=== PATIENT | male | born 1970 | race Native Hawaiian/Other Pacific Islander ===

== ENCOUNTER 2023-07-29 15:03 | Outpatient (CLI) | payer SELFPAY | END 2023-07-29 15:04 | disposition critical access hospital (66) | LOC: EMS 15:03 | DX: R55 Syncope and collapse (principal); R41.82 Altered mental status, unspecified; R29.810 Facial weakness | CPT/HCPCS: A0425; A0429 ==

== ENCOUNTER 2023-07-29 15:25 | Emergency (ER) | payer SELFPAY ==
--- NOTE | 2023-07-29 15:31 | ED Physician Documentation ---
History of Present Illness - Stated complaint Stated Complaint: CODE STROKE - Additonal information Additional information: 52-year-old gentleman was brought to the emergency department under a code stroke evaluation. Reportedly he was sitting his vehicle at 2:45 PM when he Told his he was not feeling well and to call 911. He then slumped forward. [place] reported that he was not feeling well and was dizzy and went to the car to sit down. EMS was summoned to the scene and they found that he was altered though protecting his airway. They found that he was not moving his left side and required extensive noxious stimulation in order to open his eyes. Hypertensive on scene with systolic blood pressure of 177. Blood glucose 112 On presentation the emergency department the patient is somnolent and does require noxious stimuli to wake up. However when he does he is able to answer that the day is Sunday and the month of June. He is not sure where he is at. He does not appear to have facial droop or slurred speech. He does have bloodshot eyes. He is hypertensive on presentation, showing NSR on monitor Patient's reports he has a history of hypertension and gout. Also reports he is a heavy drinker (6-12 beers daily) but has not drank today. Review of Systems Unable to obtain: Unresponsive, Other (per EMS) PD PAST MEDICAL HISTORY - Present Medications Home Medications: Ambulatory Orders Medication Instructions Recorded Confirmed Meloxicam 15 mg PO BID 07/29/23 07/29/23 - Allergies Allergies/Adverse Reactions: Allergies Allergy/AdvReac Type Severity Reaction Status Date / Time No Known Drug Allergies Allergy Verified 07/29/23 15:51 PD ED PE EXPANDED - General General: Lethargic - HEENT HEENT: PERRL - Cardiac Cardiac: Regular Rate (NSR on monitor), Radial strong equal, Pedal strong equal, Cap refill < 2 sec - Respiratory Respiratory: Clear to ausultation mitesh. No: Distress, Labored - Abdomen Abdomen: Normal Bowel sounds. No: Tender to palpation - Neuro Neuro: Lethargic. No: Normal speech - GCS Eye Opening: To Pain Motor: Localizes to Pain Verbal: Inappropriate Total: 10 Results - Vitals Vitals: Vital Signs - 24 hr 07/29/23 07/29/23 07/29/23 15:30 15:56 16:13 Temperature 36.5 C Heart Rate 89 79 70 Respiratory 18 20 18 Rate Blood Pressure 177/120 H 156/129 H 171/95 H O2 Saturation 98 100 98 07/29/23 07/29/23 07/29/23 16:35 17:08 18:12 Temperature Heart Rate 84 66 68 Respiratory 18 16 18 Rate Blood Pressure 166/88 H 157/88 H 150/91 H O2 Saturation 98 96 94 07/29/23 07/29/23 07/29/23 18:30 19:06 19:30 Temperature Heart Rate 72 81 67 Respiratory 18 18 19 Rate Blood Pressure 150/91 H 155/82 H 151/70 H O2 Saturation 99 97 97 07/29/23 07/29/23 07/29/23 20:00 20:30 21:00 Temperature Heart Rate 67 71 67 Respiratory 18 18 19 Rate Blood Pressure 159/79 H 150/86 H 144/79 H O2 Saturation 98 96 95 Oxygen O2 Source Room air - EKG (time done) 1559 EKG releavant findings:: EKG personally interpreted by author of this note. Relevant findings are: Rate: Rate (enter#) (77) Rhythm: NSR [place]: Normal Intervals: Normal NE QRS: Normal Ischemia: Normal ST segments Compare to prior EKG: Old EKG unavailable Computer interpretation: Agree with computer - Labs Labs: Laboratory Tests 07/29/23 07/29/23 07/29/23 14:54 14:54 14:54 WBC 5.2 RBC 5.01 Hgb 16.2 Hct 47.6 MCV 95.0 H MCH 32.3 H MCHC 34.0 RDW 11.7 L Plt Count 234 MPV 9.7 Neut # (Auto) 3.0 Lymph # (Auto) 1.4 L [place] # (Auto) 0.5 Eos # (Auto) 0.3 Baso # (Auto) 0.1 Absolute Nucleated RBC 0.00 Nucleated RBC % 0.0 PT 11.0 INR 1.0 Sodium 131 L Potassium 4.2 Chloride 100 L Carbon Dioxide 25 Anion Gap 6.0 BUN 16 Creatinine 1.2 Estimated GFR (MDRD) 63 L Glucose 94 Calcium 9.2 Phosphorus Magnesium Total Bilirubin 0.8 AST 23 ALT 20 Alkaline Phosphatase 73 Troponin I High Sens Total Protein 7.3 Albumin 4.1 Globulin 3.2 Albumin/Globulin Ratio 1.3 Lipase 25 TSH Free T4 Direct Nasal Adenovirus (PCR) Nasal B. parapertussis DNA (PCR) Nasal Coronavir 229E PCR Nasal Coronavir HKU1 PCR Nasal Coronavir NL63 PCR Nasal Coronavir OC43 PCR Nasal Enterovir/Rhinovir PCR Nasal Influenza B PCR Nasal Influenza A PCR Nasal Parainfluen 1 PCR Nasal Parainfluen 2 PCR Nasal Parainfluen 3 PCR Nasal Parainfluen 4 PCR Nasal RSV (PCR) Nasal B.pertussis DNA PCR Nasal C.pneumoniae (PCR) [place] Human Metapneumo PCR Nasal M.pneumoniae (PCR) Nasal SARS-CoV-2 (PCR) Urine Opiates Screen Ur Oxycodone Screen Urine Methadone Screen Ur Propoxyphene Screen Ur Barbiturates Screen Ur Tricyclics Screen Ur Phencyclidine Scrn Ur Amphetamine Screen U Methamphetamines Scrn U Benzodiazepines Scrn Urine Cocaine Screen U Cannabinoids Screen Ethyl Alcohol < 10.0 07/29/23 07/29/23 07/29/23 14:54 14:54 16:05 WBC RBC Hgb Hct MCV MCH MCHC RDW Plt Count MPV Neut # (Auto) Lymph # (Auto) [place] # (Auto) Eos # (Auto) Baso # (Auto) Absolute Nucleated RBC Nucleated RBC % PT INR Sodium Potassium Chloride Carbon Dioxide Anion Gap BUN Creatinine Estimated GFR (MDRD) Glucose Calcium Phosphorus 3.2 Magnesium 1.9 Total Bilirubin AST ALT Alkaline Phosphatase Troponin I High Sens 12.7 Total Protein Albumin Globulin Albumin/Globulin Ratio Lipase TSH 1.29 Free T4 Direct 0.81 Nasal Adenovirus (PCR) NOT DETECTED Nasal B. parapertussis DNA (PCR) NOT DETECTED Nasal Coronavir 229E PCR NOT DETECTED Nasal Coronavir HKU1 PCR NOT DETECTED Nasal Coronavir NL63 PCR NOT DETECTED Nasal Coronavir OC43 PCR NOT DETECTED Nasal Enterovir/Rhinovir PCR NOT DETECTED Nasal Influenza B PCR NOT DETECTED Nasal Influenza A PCR NOT DETECTED Nasal Parainfluen 1 PCR NOT DETECTED Nasal Parainfluen 2 PCR NOT DETECTED Nasal Parainfluen 3 PCR NOT DETECTED Nasal Parainfluen 4 PCR NOT DETECTED Nasal RSV (PCR) NOT DETECTED Nasal B.pertussis DNA PCR NOT DETECTED Nasal C.pneumoniae (PCR) NOT DETECTED [place] Human Metapneumo PCR NOT DETECTED Nasal M.pneumoniae (PCR) NOT DETECTED Nasal SARS-CoV-2 (PCR) NOT DETECTED Urine Opiates Screen Ur Oxycodone Screen Urine Methadone Screen Ur Propoxyphene Screen Ur Barbiturates Screen Ur Tricyclics Screen Ur Phencyclidine Scrn Ur Amphetamine Screen U Methamphetamines Scrn U Benzodiazepines Scrn Urine Cocaine Screen U Cannabinoids Screen Ethyl Alcohol 07/29/23 16:42 WBC RBC Hgb Hct MCV MCH MCHC RDW Plt Count MPV Neut # (Auto) Lymph # (Auto) [place] # (Auto) Eos # (Auto) Baso # (Auto) Absolute Nucleated RBC Nucleated RBC % PT INR Sodium Potassium Chloride Carbon Dioxide Anion Gap BUN Creatinine Estimated GFR (MDRD) Glucose Calcium Phosphorus Magnesium Total Bilirubin AST ALT Alkaline Phosphatase Troponin I High Sens Total Protein Albumin Globulin Albumin/Globulin Ratio Lipase TSH Free T4 Direct Nasal Adenovirus (PCR) Nasal B. parapertussis DNA (PCR) Nasal Coronavir 229E PCR Nasal Coronavir HKU1 PCR Nasal Coronavir NL63 PCR Nasal Coronavir OC43 PCR Nasal Enterovir/Rhinovir PCR Nasal Influenza B PCR Nasal Influenza A PCR Nasal Parainfluen 1 PCR Nasal Parainfluen 2 PCR Nasal Parainfluen 3 PCR Nasal Parainfluen 4 PCR Nasal RSV (PCR) Nasal B.pertussis DNA PCR Nasal C.pneumoniae (PCR) [place] Human Metapneumo PCR Nasal M.pneumoniae (PCR) Nasal SARS-CoV-2 (PCR) Urine Opiates Screen NEGATIVE Ur Oxycodone Screen NEGATIVE Urine Methadone Screen NEGATIVE Ur Propoxyphene Screen NEGATIVE Ur Barbiturates Screen NEGATIVE Ur Tricyclics Screen NEGATIVE Ur Phencyclidine Scrn NEGATIVE Ur Amphetamine Screen NEGATIVE U Methamphetamines Scrn NEGATIVE U Benzodiazepines Scrn NEGATIVE Urine Cocaine Screen NEGATIVE U Cannabinoids Screen NEGATIVE Ethyl Alcohol - Rads (name of study) CT head Relevant Findings:: Final report received (No acute intracranial pathology) PD Medical Decision Making - ED course Complexity details: reviewed results, re-evaluated patient, d/w patient, d/w fashion consultant ED course: 52-year-old male was at a [facility] when he began to feel suddenly dizzy. Reported to his he was going to go to the car to lay down. When he got in the car he told his he did not feel well and asked her to call 911. He then slumped forward and had a loss of consciousness. This occured at 1445. EMS was summoned. On scene they reported that the patient had some left-sided facial droop as well as some left arm weakness. However he was quite obtunded and required noxious stimuli for arousal. Blood glucose was 112. EKG showed normal sinus rhythm. He was transported to the ER under code stroke. On presentation to the emergency department he was a [place] of 10 still requiring noxious stimuli but he no longer had focal deficits as described on scene. However he was immediately transported the CT scanner to evaluate for the possibility of an ischemic brain event. Telestroke was consulted and I spoke with Dr. Ulrich. He was able to evaluate the patient. By the time he had evaluated the patient the neuro symptoms had nearly fully subsided. He felt it was likely that the patient had a TIA and did not recommend TNK. However he feels the patient does need an echocardiogram and an MRI. He would recommend loading the patient with 325 mg of aspirin and beginning the patient on 81 mg of aspirin daily. At 4pm, after the patient was evaluated by telestroke he had an approximate 20 beat run of V. tach which was asymptomatic. This raises the concern that the primary event today could have been cardiac or V. tach in nature. I have ordered amiodarine loading bolus followed by infusion protocol I discussed with the patient my concern that he would likely need cardiology ev aluation not available at [facility] We did obtain CBC, coags, chemistry alcohol level urine drug screen. Per my interpretation no anemia. He has a markedly elevated MCV which would be consistent with his history of alcohol abuse. Chemistry shows a sodium of 131. His reports that he drinks 6-10 beers a day. This may be seen in the setting of beer potomania. He had no abnormal liver function test. Urine drug screen and alcohol level today were negative. Given the need for cardiology evaluation and no such services or echocardiogram available at [facility] we will start the process of looking to transfer to a tertiary facility with appropriate services and capacity 2109: I spoke with Dr. Drake Air Lift Operator on-call at [facility]. We discussed the case over the phone and she agrees the patient should be transferred for further cardiology evaluation. Now awaiting hospitalist at [facility]. 2154: I have spoken with Dr. Hernandez hospitalist at [facility] who graciously agrees t o accept the patient in transfer. Patient will be transferred via ALS ambulance. Appropriate COBRA paperwork completed. Departure - Departure Disposition: 02 Transfer Acute Care Hosp Clinical Impression: Ventricular tachyarrhythmia, Stroke-like episode, Alcohol abuse Syncope Qualifiers: Syncope type: unspecified Qualified Code(s): R55 - Syncope and collapse Condition: Serious Forms: PCP List NIHSS - Time Time: 15:45 - Level of Consciousness Level of consciousness: (2) Not alert, requires repeated stimulation to attend LOC Questions: (0) Answers both Q's correct LOC Commands: (1) Performs one correctly - Gaze Best Gaze: (0) Normal - Visual Visual: (0) No loss - Facial Palsy Facial Palsy: (0) Normal, symmetrical movement - Motor Arms (both separate) Motor Arm (right): (0) No drift Motor Arm (left): (0) No drift - Motor Legs (both separate) Motor Leg (right): (1) Drift Motor Leg (left): (0) No drift - Limb Ataxia Limb Ataxia: (0) Absent - Sensory Sensory: (0) Normal - Best Language Best Language: (1) [id number] - Dysarthria Dysarthria: (1) [id number] dysarthria - Extinction and Inattention (formally neg Extinction and inattention: (0) No abnormality - Total Score/Results Total Score/Result: 6
[2023-07-29 15:59] LABS: BASOPHILS # (AUTO) 0.1 10^3/uL (0.0-0.1); EOSINOPHILS # (AUTO) 0.3 10^3/uL (0.0-0.7); EOSINOPHILS % (AUTO) 5.7 %; HCT - HEMATOCRIT 47.6 % (42.0-52.0); HGB - HEMOGLOBIN 16.2 g/dL (14.0-18.0); LYMPHOCYTES # (AUTO) 1.4 10^3/uL (1.5-3.5); LYMPHOCYTES % (AUTO) 26.1 %; MEAN CORPUSCULAR HEMOGLOBIN 32.3 pg (27.0-31.0); MEAN PLATELET VOLUME 9.7 fL (7.4-11.4); MONOCYTES # (AUTO) 0.5 10^3/uL (0.0-1.0); MONOCYTES % (AUTO) 9.4 %; NEUTROPHILS % (AUTO) 57.4 %; PLT - PLATELET COUNT 234 10^3/uL (130-450); RED BLOOD COUNT 5.01 10^6/uL (4.70-6.10); RED CELL DISTRIBUTION WIDTH 11.7 % (12.0-15.0); WHITE BLOOD COUNT 5.2 x10^3/uL (4.8-10.8)
[2023-07-29 16:11] LABS: ALBUMIN 4.1 g/dL (3.2-5.5); ALBUMIN/GLOBULIN RATIO 1.3 (1.0-2.2); ALKALINE PHOSPHATASE 73 IU/L (42-121); ALT ALANINE AMINOTRANSFERASE 20 IU/L (10-60); AST ASPARTATE AMINOTRANSFERASE 23 IU/L (10-42); BILIRUBIN,TOTAL 0.8 mg/dL (0.2-1.0); BUN - BLOOD UREA NITROGEN 16 mg/dL (6-20); CALCIUM 9.2 mg/dL (8.5-10.3); CARBON DIOXIDE - CO2 25 mmol/L (21-32); CHLORIDE 100 mmol/L (101-111); CREATININE 1.2 mg/dL (0.6-1.3); ETOH - ETHANOL < 10.0 mg/dL; GFR - MDRD 63 (>89); GLUCOSE 94 mg/dL (74-104); LIPASE 25 U/L (11-82); POTASSIUM 4.2 mmol/L (3.5-4.5); SODIUM 131 mmol/L (135-145); TOTAL PROTEIN 7.3 g/dL (6.4-8.9)
--- NOTE | 2023-07-29 16:11 | CT Report ---
PROCEDURE: HEAD WO INDICATIONS: aphasia; sunnen unresponsive TECHNIQUE: Noncontrast 4.5 mm thick angled axial sections acquired from the foramen magnum to the vertex. For r adiation dose reduction, the following was used: automated exposure control, adjustment of mA and/or kV according to patient size. COMPARISON: None. FINDINGS: Image quality: Excellent. CSF spaces: Basal cisterns are patent. No extra-axial fluid collections. Ventricles are normal in size and shape. Brain: No midline shift. No intracranial masses or hemorrhage. Mild age-related global volume loss . Miller-white matter interface is normal. Intracranial atherosclerotic vascular calcific patient. Skull and face: Calvarium and visualized facial bones are intact, without suspicious lesions. Sinuses: Mild maxillary sinus mucosal thickening. Visualized sinuses and mastoids are otherwise clear . IMPRESSION: No acute intracranial pathology. Reviewed by: Caden Elam MD on 07/29/2023 4:09 PM PDT Approved by: Caedn Elam MD on 07/29/2023 4:09 PM PDT Station ID: [id number]
--- NOTE | 2023-07-29 16:20 | CT Report ---
PROCEDURE: CT Angio Head/Neck INDICATIONS: L sided facial droop CONTRAST: IV contrast was administered TECHNIQUE: After the administration of intravenous contrast, 1 mm thick sections acquired from the aortic arch t hrough the [place]. 3-dimensional nhboaid-hxdjbwach-jxpfbkbllk (MIP) and/or volume renderin g reformats were acquired of the central intracranial vasculature and neck separately. For radiation dose reduction, the following was used: automated exposure control, adjustment of mA and/or kV acco rding to patient size. CONTRAST: IV contrast was administered COMPARISON: None. FINDINGS: Image quality: Diagnostic. HEAD CT: See separate dictated CT of the head. HEAD CT ANGIOGRAPHY: Anterior circulation: Intracranial internal carotid arteries are normal in size and flow. The flow within the paired anterior cerebral arteries is normal and symmetric. The flow within the middle cer ebral arteries is normal and symmetric. The anterior communicating artery is seen. No aneurysms are seen. Posterior circulation: Visualized portions of the vertebral arteries demonstrate normal caliber, and join to form a normal appearing basilar artery. origin of the right DENTAL CERAMIST ASSISTANT. Flow within the poste rior cerebral arteries is normal and symmetric. No aneurysms are seen. NECK CT ANGIOGRAPHY: Evaluation of the aortic arch and proximal vessels of the neck is limited secondary to poor penetrati on. Carotid system: The great vessels demonstrate a conventional anatomy as they arise from the aortic a rch. The origins of the common carotid arteries appear patent. The common carotid arteries demonstr ate normal caliber and courses. The bifurcation regions are both widely patent. The internal caroti d arteries demonstrate normal calibers and courses. Posterior circulation: The origins of the vertebral arteries both appear widely patent. The more oliveira perior extracranial portions of both vertebral arteries also demonstrate normal courses and calibers. They join to form a normal appearing basilar artery. Soft tissues: Visualized neck soft tissues demonstrate no suspicious abnormalities. Possible right thyroid nodule measuring 1.1 cm. Bones: No suspicious bony lesions. Visualized cervical spine appears normally aligned. Degenerative changes of the cervical spine. IMPRESSION: 1.No large vessel occlusion or hemodynamically significant stenosis. 2.The arteries of the head and neck are patent. 3.Possible right thyroid nodule measuring 1.1 cm. Recommend nonemergent thyroid ultrasound for furthe r evaluation. The estimate of stenosis included in the report of the imaging study was calculated using the NASCET method Reviewed by: Caden Elam MD on 07/29/2023 4:19 PM PDT Approved by: Caden Elam MD on 07/29/2023 4:19 PM PDT Station ID: [id number]
[2023-07-29] MEDS ORDERED: ASPIRIN CHEW 81 MG TABLET PO STA (16:24)
--- NOTE | 2023-07-29 16:31 | XRAY Report ---
PROCEDURE: Chest 1 View X-Ray INDICATIONS: Chest Pain TECHNIQUE: One view of the chest was acquired. COMPARISON: None. FINDINGS: Surgical changes and devices: None. Lungs and pleura: No pleural effusions or pneumothorax. Lungs are clear. Mediastinum: Mediastinal contours appear normal. Heart size is mildly enlarged. Bones and chest wall: No suspicious bony lesions. Overlying soft tissues appear unremarkable. IMPRESSION: No acute cardiopulmonary process. Reviewed by: Caden Cole MD on 07/29/2023 4:30 PM PDT Approved by: Caden Cole MD on 07/29/2023 4:30 PM PDT Station ID: [id number]
[2023-07-29 16:41] LABS: MAGNESIUM 1.9 mg/dL (1.7-2.3); PHOSPHORUS 3.2 mg/dL (2.5-5.0)
[2023-07-29 16:47] LABS: MUDS CUTOFF CONCENTRATIONS CUTOFF CONC BELOW:
[2023-07-29 16:50] LABS: TROPONIN I HIGH SENSITIVITY 12.7 ng/L (2.3-19.7)
[2023-07-29 17:00] LABS: AMPHETAMINE SCREEN,URINE NEGATIVE (NEGATIVE); BARBITURATE SCREEN,UR NEGATIVE (NEGATIVE); BENZODIAZEPINES SCREEN, URINE NEGATIVE (NEGATIVE); COCAINE SCREEN URINE NEGATIVE (NEGATIVE); METHADONE SCREEN, URINE NEGATIVE (NEGATIVE); METHAMPHETAMINES SCREEN, URINE NEGATIVE (NEGATIVE); OPIATE SCREEN, URINE NEGATIVE (NEGATIVE); OXYCODONE SCREEN, URINE NEGATIVE (NEGATIVE); PROPOXYPHENE SCREEN, URINE NEGATIVE (NEGATIVE); THC CANNABINOID SCREEN, URINE NEGATIVE (NEGATIVE); TRICYCLIC ANTIDEPRESSANT,URINE NEGATIVE (NEGATIVE)
[2023-07-29 17:05] LABS: THYROID STIMULATING HORMONE 1.29 uIU/mL (0.34-5.60)
[2023-07-29 17:12] LABS: B. PARAPERTUSSIS- RESP PCR PAN NOT DETECTED; B. PERTUSSIS- RESP PCR PANEL NOT DETECTED; C. PNEUMONIAE- RESP PCR PANEL NOT DETECTED; CORONAVIRUS 229E-RESP PCR NOT DETECTED; CORONAVIRUS HKU1-RESP PCR NOT DETECTED; CORONAVIRUS NL63-RESP PCR NOT DETECTED; CORONAVIRUS OC43-RESP PCR NOT DETECTED; HUMAN METAPNEUMOVIRUS NOT DETECTED; INFLUENZA A- RESP PCR PANEL NOT DETECTED; INFLUENZA B - RESP PCR PANEL NOT DETECTED; M. PNEUMONIAE- RESP PCR PANEL NOT DETECTED; PARAINFLUENZA VIRUS 1 NOT DETECTED; PARAINFLUENZA VIRUS 2 NOT DETECTED; PARAINFLUENZA VIRUS 3 NOT DETECTED; PARAINFLUENZA VIRUS 4 NOT DETECTED; RHINOVIRUS/ENTEROVIRUS NOT DETECTED; RSV- RESP PCR PANEL NOT DETECTED; SARS-CoV-2 -RESP PCR PANEL NOT DETECTED
[2023-07-29] MEDS ORDERED: iohexoL-300 100 ML VIAL IVP ONE (17:52)
[2023-07-29] MEDS ORDERED: AMIODARONE 150 MG/100 ML 100 ML IV ONE (19:22)
[2023-07-29] MEDS ORDERED: AMIODARONE 360 MG/200 ML 200 ML IV ONE (19:30)
[2023-07-29 22:17] VITALS: BP 144/76; O2SAT 99
[2023-07-30] MEDS ORDERED: AMIODARONE 360 MG/200 ML 200 ML IV SCH (01:30)
== END 2023-07-29 22:30 | disposition short-term general hospital (02) ==
LOC: ED 15:25
DX: I47.20 Ventricular tachycardia, unspecified (principal); F10.10 Alcohol abuse, uncomplicated; Y90.0 Blood alcohol level of less than 20 mg/100 ml; R55 Syncope and collapse
CPT/HCPCS: 36415; 70450; 70496; 70498; 71045; 80053; 80306; 80320; 83690; 83735; 84100; 84439; 84443; 84484; 85025; 85610; 87633; 93005; 96374; 99285; A9270; J0282; Q9967

== ENCOUNTER 2023-07-29 22:34 | Outpatient (CLI) | payer SELFPAY | END 2023-07-29 23:59 | disposition short-term general hospital (02) | LOC: EMS 22:34 | PROVIDERS: ATTEND Emergency Medicine | DX: I47.20 Ventricular tachycardia, unspecified (principal); R55 Syncope and collapse; F10.10 Alcohol abuse, uncomplicated | CPT/HCPCS: A0425; A0426 ==